=== PATIENT | female | born 1960 | race Caucasian/White ===

== ENCOUNTER → 2020-10-15 | Outpatient (CLI) | payer OTHER | LOC: EXRD 10:59 | DX: J20.9 Acute bronchitis, unspecified (principal); R91.8 Other nonspecific abnormal finding of lung field | CPT/HCPCS: 71046 ==

== ENCOUNTER → 2020-10-24 | Outpatient (CLI) | payer OTHER | LOC: HEART 5 08:00 | DX: M25.471 Effusion, right ankle (principal); M25.472 Effusion, left ankle; R03.0 Elevated blood-pressure reading, without diagnosis of hypertension | CPT/HCPCS: 93306 ==

== ENCOUNTER → 2020-10-31 | Outpatient (CLI) | payer OTHER | LOC: MAMO 10-08 15:30 | DX: Z12.31 Encounter for screening mammogram for malignant neoplasm of breast (principal) | CPT/HCPCS: 77063; 77067 ==

== ENCOUNTER → 2020-12-18 | Outpatient (CLI) | payer OTHER | LOC: EXRD 09:47 | DX: R10.9 Unspecified abdominal pain (principal); M51.34 Other intervertebral disc degeneration, thoracic region; M51.36 Other intervertebral disc degeneration, lumbar region; M48.04 Spinal stenosis, thoracic region | CPT/HCPCS: 72070; 72100 ==

== ENCOUNTER → 2021-04-18 | Outpatient (CLI) | payer OTHER | LOC: MRI 09:28 | DX: R22.32 Localized swelling, mass and lump, left upper limb (principal); M19.032 Primary osteoarthritis, left wrist | CPT/HCPCS: 73220; A9577 ==

== ENCOUNTER → 2021-05-15 | Outpatient (CLI) | payer OTHER | LOC: EXRD 11:39 | DX: M25.572 Pain in left ankle and joints of left foot (principal); M79.601 Pain in right arm | CPT/HCPCS: 73060; 73610 ==

== ENCOUNTER → 2021-06-12 | Outpatient (CLI) | payer OTHER ==
[~2021-06-12] MED LIST: BUPROPION HCL150 M1 PO; CYCLOBENZAPRINE10 MG PO; HYDROCHLOROTH12.5 MG PO; HYDROCODON-ACE1 EAC2 PO; IBU800 MG PO; PROAIR HFA8.5 GM INH; VITAMIN D21250 MCG PO
[2021-06-12 13:00] LABS: BUN/CREATININE RATIO 16 (0-10)
== END ==
LOC: OPSV2 11:20
PROVIDERS: Orthopaedic Surgery
DX: Z01.818 Encounter for other preprocedural examination (principal)
CPT/HCPCS: 80048; 93005

== ENCOUNTER → 2021-06-27 | Day surgery (SDC) | payer OTHER | END | disposition home or self-care (01) | LOC: OR 07:11 | DX: M67.432 Ganglion, left wrist (principal); J45.909 Unspecified asthma, uncomplicated; F32.A Depression, unspecified; F17.210 Nicotine dependence, cigarettes, uncomplicated; Z88.5 Allergy status to narcotic agent; Z79.899 Other long term (current) drug therapy; Z20.822 Contact with and (suspected) exposure to COVID-19 | CPT/HCPCS: J0690; J1100; J2001; J2250; J2370; J2405; J2704; J3010; J7120 ==

== ENCOUNTER → 2021-09-09 | Outpatient (CLI) | payer OTHER | LOC: KOH-I 11:35 | DX: M54.51 Vertebrogenic low back pain (principal); M51.36 Other intervertebral disc degeneration, lumbar region | CPT/HCPCS: 72100 ==

== ENCOUNTER → 2021-10-17 | Outpatient (CLI) | payer OTHER | LOC: KOH-I 13:30 | DX: F17.210 Nicotine dependence, cigarettes, uncomplicated (principal); R91.1 Solitary pulmonary nodule | CPT/HCPCS: 71271 ==

== ENCOUNTER → 2021-12-03 | Outpatient (CLI) | payer OTHER | LOC: MAMO 11-27 13:00 | DX: Z12.31 Encounter for screening mammogram for malignant neoplasm of breast (principal) | CPT/HCPCS: 77063; 77067 ==